=== PATIENT | female | born 1950 | race Caucasian/White ===

== ENCOUNTER 2018-07-06 07:23 | Day surgery (SDC) | payer MEDICARE, OTHER ==
[~2018-07-06 07:23] MED LIST: Lactated Ringers 1,000 ML IV SCH; Sodium Chloride 0.9% 10 ML Syringe FLUSH PRN
[2018-07-06] MEDS ORDERED: Propofol 200 MG/20 ML SDV ONE ×2 (08:57→10:06)
[2018-07-06] MEDS ORDERED: fentaNYL 100 MCG/2 ML SDV ONE (08:57)
--- NOTE | 2018-07-06 14:05 | OR ---
PRE-OPERATIVE DIAGNOSIS: History of colon polyps. Last colonoscopy was in 2011. No known family history of colon cancer or colon polyps. POST-OPERATIVE DIAGNOSES: 1. Somewhat tortuous sigmoid colon. 2. Mild sigmoid diverticulosis, but otherwise normal. PROCEDURE: Colonoscopy. SURGEON: Mika Ty M.D. ANESTHESIA: Monitored anesthesia care. BOWEL PREP: Good. DESCRIPTION OF PROCEDURE: Rossy is a 67-year-old female who was brought to the endoscopy suite after discussing risks and benefits of the procedure. Informed consent was obtained for conscious sedation and colonoscopy with or without biopsy and/or polypectomy. We also discussed possibility of missed lesions. Pre-procedure exam was unremarkable. IV, oxygen, and monitors were placed. The patient was placed in the left lateral decubitus position. Sedation was administered and a digital rectal exam was performed and unremarkable. Colonoscope was passed into the rectum and slowly advanced all the way to the cecum. The patient did have somewhat tortuous sigmoid colon. Cecum was eventually viewed and photographed. She did require some left abdominal manipulation to facilitate passage of the scope. The ascending colon was unremarkable. The transverse colon was unremarkable. The descending colon was unremarkable. The sigmoid colon revealed some mild sigmoid diverticulosis. Retroflexion was performed. Rectal mucosa unremarkable. Scope was removed. The patient tolerated the procedure well. The patient was monitored until that baseline status. Discharge instructions were reviewed and the patient was discharged in good condition. COMPLICATIONS: None. TOTAL TIME: 20 minutes. ESTIMATED BLOOD LOSS: None. RECOMMENDATIONS/FOLLOW-UP: Given her previous history of polyps back in 2011, I would consider repeating colonoscopy again in about 7 years. I would like to kindly thank Vani Vital for this referral. DMB: 07/06/2018 10:51:45 MODL: 07/06/2018 14:01:45 /[id number]
== END 2018-07-06 11:30 | disposition home or self-care (01) ==
LOC: VM.SDS 07:23
PROVIDERS: ATTEND Family Medicine
DX: Z12.11 Encounter for screening for malignant neoplasm of colon (principal); K57.30 Diverticulosis of large intestine without perforation or abscess without bleeding; Z86.010 Personal history of colon polyps; K63.89 Other specified diseases of intestine; H91.90 Unspecified hearing loss, unspecified ear; Z82.71 Family history of polycystic kidney; Z00.00 Encounter for general adult medical examination without abnormal findings
CPT/HCPCS: J2704; J3010; J7120

== ENCOUNTER 2024-07-16 13:06 | Emergency (ER) | payer MEDICARE, OTHER ==
[2024-07-16] MEDS: Lidocaine 1% 30 ML SDV INJECT ONE (13:18)
[2024-07-16] MEDS: ceFAZolin 1 GM Vial IM ONE (14:25)
== END 2024-07-16 14:40 | disposition home or self-care (01) ==
LOC: VM.ED 13:06 → SUPCPDRO 13:06 → VM.ED 14:40
DX: S62.632B Displaced fracture of distal phalanx of right middle finger, initial encounter for open fracture (principal); Z79.899 Other long term (current) drug therapy; W23.1XXA Caught, crushed, jammed, or pinched between stationary objects, initial encounter; Y93.89 Activity, other specified
CPT/HCPCS: 12001; 73130; 96372; 99283; J0690; J2003